=== PATIENT | male | born 1985 | race Caucasian/White ===

== ENCOUNTER 2019-08-07 11:48 | Emergency (ER) | payer BC ==
[2019-08-07 11:52] VITALS: BP 147/82; PULSE 119; TEMP 100.7; BMI 25.7
[2019-08-07] MEDS ORDERED: ACETAMINOPHEN 325 MG TABLET (FP) PO ONE (12:35)
[2019-08-07] MEDS ORDERED: ACETAMINOPHEN 325 MG TABLET (FP) ONE (12:38)
--- NOTE | 2019-08-07 12:53 | PDOC ---
History of Present Illness - General Chief Complaint: Respiratory Stated Complaint: Cold Symptoms Time Seen by Provider: 08/07/19 12:28 History Source: Patient Exam Limitations: No Limitations Past History - Past Medical History Allergies/Adverse Reactions: Allergies Allergy/AdvReac Type Severity Reaction Status Date / Time No Known Allergies Allergy Verified 08/07/19 11:52 Home Medications: Ambulatory Orders Ibuprofen [Motrin -] 800 mg PO TID #30 tablet 02/22/14 No Home Medications 0 dose .ROUTE UTDICT 02/22/14 COPD: No Other medical history: pneumonia 2006 - Immunization History Immunization Up to Date: Yes - Psycho Social/Smoking Cessation Hx Smoking History: Never smoked Have you smoked in the past 12 months: Yes Number of Cigarettes Smoked Daily: 4 'Breaking Loose' booklet given: 02/22/14 Hx Alcohol Use: Yes (occasion) Substance Use Type: None *Physical Exam - Vital Signs Last Vital Signs Temp Pulse Resp BP Pulse Ox 100.7 F H 119 H 18 147/82 97 08/07/19 11:49 08/07/19 11:49 08/07/19 11:49 08/07/19 11:49 08/07/19 11:49 - Physical Exam General Appearance: Yes: Nourished HEENT: positive: Normal Voice. negative: Muffled/Hoarse voice, Pharyngeal Erythema, Tonsillar Exudate, Tonsillar Erythema Respiratory/Chest: positive: Lungs Clear, Normal Breath Sounds. negative: Respiratory Distress Cardiovascular: positive: Tachycardia. negative: Murmur Integumentary: positive: Normal Color Neurologic: positive: Alert ED Treatment Course - Medications Given in the ED: ED Medications Discontinued Medications Generic Name Dose Route Start Last Admin Trade Name Zacharyq PRN Reason Stop Dose Admin Acetaminophen 975 mg 08/07/19 12:35 08/07/19 12:40 Tylenol - PO 08/07/19 12:36 975 mg ONCE ONE Administration Medical Decision Making - Medical Decision Making 33 y/o M with no sig pmh presents with fever, body aches, cough (with slight phlegm) since yesterday. Has been using Nyquil without relief of symptoms. + congestion. Denies ear pain, throat pain, sob, cp, abd pain, n/v/d. R/O influenza Plan: Flu swab, Tylenol 08/07/19 12:51 Flu negative CXR negative Likely viral syndrome stable for dc 08/07/19 13:42 Discharge - Discharge Information Problems reviewed: Yes Clinical Impression/Diagnosis: Viral URI Condition: Stable Disposition: HOME - Admission No - Additional Discharge Information Prescription Drug Monitoring Program (I-STOP) results: I-STOP not reviewed - Follow up/Referral Referrals: Alvin Loredo MD [Primary Care Provider] - 2 Days - Patient Discharge Instructions Patient Printed Discharge Instructions: DI for Viral Upper Respiratory Infection -- Adult Additional Instructions: Thank you for choosing [facility]. It was a pleasure taking care of you. Alternate between Tylenol every 4 and Motrin every 6 hours as needed for fever Recommend rest Drink at least 2-3L of water daily Follow-up with your doctor in 2 days Return to the Emergency Department if your symptoms worsen or persist or have other concerning symptoms. - Post Discharge Activity Work/Back to School Note: Back to Work
== END 2019-08-07 13:47 | disposition home or self-care (01) ==
LOC: JERFT 11:48
DX: J06.9 Acute upper respiratory infection, unspecified (principal); Z87.891 Personal history of nicotine dependence
CPT/HCPCS: 71046-TC-FY; 87804; 99281-25

== ENCOUNTER 2020-07-15 14:46 | Emergency (ER) | payer BC, OTHER ==
[2020-07-15] MEDS ORDERED: ACETAMINOPHEN 325 MG TABLET (FP) PO ONE (14:52)
[2020-07-15] MEDS ORDERED: CYCLOBENZAPRINE HCL 10 MG TABLET (FP) PO ONE (14:52)
[2020-07-15 14:56] VITALS: BP 133/90; PULSE 68; TEMP 98.7; BMI 25.1
[2020-07-15] MEDS ORDERED: CYCLOBENZAPRINE HCL 10 MG TABLET (FP) ONE (15:00)
[2020-07-15] MEDS ORDERED: ACETAMINOPHEN 325 MG TABLET (FP) ONE (15:00)
[2020-07-15 16:29] LABS: EPITHELIAL CELLS RARE /hpf
== END 2020-07-15 16:37 | disposition home or self-care (01) ==
LOC: FER 14:46
DX: M62.830 Muscle spasm of back (principal); R31.9 Hematuria, unspecified
CPT/HCPCS: 81003; 81015; 99283-25

== ENCOUNTER 2021-07-24 16:43 | Emergency (ER) | payer BC, OTHER ==
[2021-07-24 17:01] VITALS: BP 119/61; PULSE 63; TEMP 98.2; BMI 25.7
[2021-07-24] MEDS ORDERED: IBUPROFEN 600 MG TABLET (FP) PO ONE ×2 (17:02→17:08)
== END 2021-07-24 17:22 | disposition home or self-care (01) ==
LOC: FER 16:43
DX: S39.012A Strain of muscle, fascia and tendon of lower back, initial encounter (principal); X50.0XXA Overexertion from strenuous movement or load, initial encounter; Y93.02 Activity, running
CPT/HCPCS: 99283-25